=== PATIENT | female | born 1995 | race Caucasian/White ===

== ENCOUNTER 2025-03-19 16:38 | Emergency (ER) | payer OTHER, SELFPAY ==
[2025-03-19 16:44] VITALS: BP 135/87; PULSE 80; TEMP 36.8; O2SAT 99; BMI 24.9
--- NOTE | 2025-03-19 16:52 | ED_ITS ---
HPI HPI - General Adult General Chief complaint: Headache Stated complaint: STABBING HEAD PAIN Time Seen by Provider: 03/19/25 16:42 Source: patient Mode of arrival: walk-in Limitations: no limitations History of Present Illness HPI narrative: 29 year old female presents to the ED for a right posterior headache. Onset was Wednesday03/16/25. It became worse today. The area is tender. Denies injury, fever, chills, dizziness, vision changes. Denies ear pain, drainage, cough, congestion, sore throat. Denies chance of . Related Data Previous Rx's ?Medication ?Instructions ?Recorded [id number] 1 cap PO Q8H PRN shanika n #10 caps 03/19/25 50 mg-300 mg-40 mg capsule (Fioricet) Allergies Allergy/AdvReac Type Severity Reaction Status Date / Time No Known Drug Allergies Allergy Verified 03/19/25 16:43 Review of Systems ROS Constitutional Denies: fever, chills or fatigue Ears, nose, mouth, and throat Denies: throat pain, neck pain, ear pain, ear discharge, tinnitus, vertigo, nasal discharge or nasal congestion Cardiovascular Denies: chest pain Respiratory Denies: shortness of breath Gastrointestinal Denies: abdominal pain, nausea or vomiting Musculoskeletal Denies: neck pain Integumentary/Breast Denies: rash Neurological Reports: headache; Denies: numbness in extremities, weakness in extremities, dizziness or vertigo PFSH PFSH Social History Little interest or pleasure in doing things: not at all Feeling down, depressed, or hopeless: not at all Exam Constitutional Vital Signs, click to edit/add: Last Vital Signs Temp 98.2 F 03/19/25 16:44 Pulse 80 03/19/25 16:44 Resp 18 03/19/25 16:44 BP 135/87 03/19/25 16:44 Pulse Ox 99 03/19/25 16:44 Common normals: no apparent distress and oriented x3 General appearance: cooperative HENMT Common normals: external ears normal, EACs normal, TMs normal bilaterally and moist oral mucous membranes Head and scalp: other (No tenderness or erythema over mastoid area.); no Reich's sign and no raccoon eyes Face and sinus: normal facial exam Mouth: oral and palatal mucosa normal, lip normal and tongue normal Other: Tenderness to right occipital scalp. Eye Common normals: PERRL, EOMs intact bilaterally, conjunctivae normal and no s cleral icterus Neck & C-Spine Common normals: full ROM, supple and no meningeal signs General: trachea midline; no lymphadenopathy Respiratory Effort & inspection: symmetric chest movement Neuro Common normals: oriented x3, CN's II-XII intact bilaterally, moves all extremities and no focal motor deficits Sensorium/orientation: awake and alert Speech: speech normal Gait (neuro): normal gait Course Vital Signs Vital signs: Vital Signs Temperature 98.2 F 03/19/25 16:44 Pulse Rate 80 03/19/25 16:44 Respiratory Rate 18 03/19/25 16:44 Blood Pressure 135/87 03/19/25 16:44 Pulse Oximetry 99 03/19/25 16:44 Temperature 98.2 F 03/19/25 16:44 Pulse Rate 80 03/19/25 16:44 Respiratory Rate 18 03/19/25 16:44 Blood Pressure 135/87 03/19/25 16:44 Pulse Oximetry 99 03/19/25 16:44 Medical Decision Making MDM Narrative Medical decision making narrative: CT scan was unremarkable. Findings were discussed with the patient. She was medicated for her discomfort here. OARRS was reviewed. A prescription was provided for Fioricet. Follow up with pcp for a recheck, further evaluation and treatment. Return precautions were discussed. Medical Records Medical records reviewed: Yes I reviewed the patient's medical records Imaging Data CT scan - head: Attestation: I have reviewed the pertinent imaging results. Radiologist's impression: No acute intracranial process. Discharge Plan Discharge Chief Complaint: Headache Clinical Impression: Headache Patient Disposition: Home, Self-Care Time of Disposition Decision: 17:29 Condition: Good Mode of Transportation: Private Vehicle Prescriptions / Home Meds: New ufvyhviill-ypirawzpgetsn-jwzz [Fioricet] 50-300-40 mg capsule 1 cap PO Q8H PRN (Reason: pain) Qty: 10 0RF Print Language: Azeri Instructions: Acute Headache (ED) Additional Instructions: Return to the ER for worsening symptoms. Referrals: HANSA VAZQUEZ [Primary Care Provider, Unknown] - 1 week Discharge Date/Time: 03/19/25 17:40
[2025-03-19] MEDS: KETOROLAC TROMETHAMINE 10 MG TABLET PO (17:37)
[2025-03-19] MEDS: DEXAMETHASONE SOD PHOS 10 MG/ML VIAL PO (17:37)
== END 2025-03-19 17:40 | disposition home or self-care (01) ==
LOC: ER 17:39
PROVIDERS: Emergency Provider Student in an Organized Health Care Education/Training Program; PCP Family Medicine
DX: R51.9 Headache, unspecified (principal)
CPT/HCPCS: 70450; 99284; J1100